=== PATIENT | female | born 1960 | race Two or more races ===

== ENCOUNTER 2018-01-14 08:05 | Outpatient (CLI) | payer OTHER | END 2018-01-14 08:30 | disposition home or self-care (01) | LOC: LAB 08:05 | DX: D64.89 Other specified anemias (principal); M06.09 Rheumatoid arthritis without rheumatoid factor, multiple sites; I10 Essential (primary) hypertension; E78.4 Other hyperlipidemia; E03.8 Other specified hypothyroidism; M81.0 Age-related osteoporosis without current pathological fracture; N39.0 Urinary tract infection, site not specified; D50.8 Other iron deficiency anemias; I11.9 Hypertensive heart disease without heart failure; E56.8 Deficiency of other vitamins; Z12.11 Encounter for screening for malignant neoplasm of colon; R19.5 Other fecal abnormalities; E55.9 Vitamin D deficiency, unspecified; N19 Unspecified kidney failure; R80.8 Other proteinuria; C18.9 Malignant neoplasm of colon, unspecified; K92.1 Melena ==

== ENCOUNTER 2018-01-30 07:43 | Outpatient (CLI) | payer OTHER | END 2018-01-30 08:45 | disposition home or self-care (01) | LOC: NUCLEAR 07:43 | DX: M06.89 Other specified rheumatoid arthritis, multiple sites (principal); I73.9 Peripheral vascular disease, unspecified; I87.2 Venous insufficiency (chronic) (peripheral) | CPT/HCPCS: 93970; 78306; A9503 ==

== ENCOUNTER 2018-10-31 09:06 | Outpatient (CLI) | payer OTHER | END 2018-10-31 09:09 | disposition home or self-care (01) | LOC: SONOGRAMA 09:06 | DX: E04.2 Nontoxic multinodular goiter (principal) ==

== ENCOUNTER 2018-11-02 08:41 | Outpatient (CLI) | payer OTHER | END 2018-11-02 13:03 | disposition home or self-care (01) | LOC: LAB 08:41 | DX: E03.8 Other specified hypothyroidism (principal); D50.9 Iron deficiency anemia, unspecified; E78.2 Mixed hyperlipidemia; I11.9 Hypertensive heart disease without heart failure; E56.8 Deficiency of other vitamins; N39.0 Urinary tract infection, site not specified; Z12.11 Encounter for screening for malignant neoplasm of colon; E55.9 Vitamin D deficiency, unspecified; N19 Unspecified kidney failure; E11.9 Type 2 diabetes mellitus without complications; R80.8 Other proteinuria; C18.0 Malignant neoplasm of cecum; K92.1 Melena; E21.0 Primary hyperparathyroidism ==

== ENCOUNTER 2019-04-17 11:25 | Outpatient (CLI) | payer OTHER | END 2019-04-17 12:00 | disposition home or self-care (01) | LOC: LAB 11:25 | DX: D50.9 Iron deficiency anemia, unspecified (principal); E03.8 Other specified hypothyroidism; E78.2 Mixed hyperlipidemia; I11.9 Hypertensive heart disease without heart failure; E56.8 Deficiency of other vitamins; N39.0 Urinary tract infection, site not specified; Z12.11 Encounter for screening for malignant neoplasm of colon; E55.9 Vitamin D deficiency, unspecified; N19 Unspecified kidney failure; E11.9 Type 2 diabetes mellitus without complications; R80.8 Other proteinuria; K92.1 Melena ==

== ENCOUNTER 2019-04-25 15:51 | Outpatient (CLI) | payer OTHER | END 2019-04-25 16:12 | disposition home or self-care (01) | LOC: LAB 15:51 | DX: D50.8 Other iron deficiency anemias (principal); E03.8 Other specified hypothyroidism; E78.2 Mixed hyperlipidemia; I11.9 Hypertensive heart disease without heart failure; E56.8 Deficiency of other vitamins; N39.0 Urinary tract infection, site not specified; Z12.11 Encounter for screening for malignant neoplasm of colon; E55.9 Vitamin D deficiency, unspecified; N19 Unspecified kidney failure; E11.9 Type 2 diabetes mellitus without complications; R80.8 Other proteinuria; C18.0 Malignant neoplasm of cecum; K92.1 Melena ==

== ENCOUNTER 2020-05-13 09:43 | Outpatient (CLI) | payer OTHER | END 2020-05-13 16:42 | disposition home or self-care (01) | LOC: MAMO-SONO 09:43 | PROVIDERS: ATTEND Obstetrics & Gynecology | DX: Z12.31 Encounter for screening mammogram for malignant neoplasm of breast (principal); N60.11 Diffuse cystic mastopathy of right breast; N60.12 Diffuse cystic mastopathy of left breast ==

== ENCOUNTER 2021-10-26 11:35 | Outpatient (CLI) | payer OTHER | END 2021-10-26 11:37 | disposition home or self-care (01) | LOC: LAB 11:35 | PROVIDERS: ATTEND Internal Medicine Geriatric Medicine | DX: D50.9 Iron deficiency anemia, unspecified (principal); E03.9 Hypothyroidism, unspecified; E78.2 Mixed hyperlipidemia; I11.9 Hypertensive heart disease without heart failure; E56.8 Deficiency of other vitamins; N39.0 Urinary tract infection, site not specified; Z12.11 Encounter for screening for malignant neoplasm of colon; R19.5 Other fecal abnormalities; E55.9 Vitamin D deficiency, unspecified; N19 Unspecified kidney failure; E11.9 Type 2 diabetes mellitus without complications; R80.9 Proteinuria, unspecified; C18.9 Malignant neoplasm of colon, unspecified; K92.1 Melena ==

== ENCOUNTER → 2021-10-27 11:00 | Outpatient (CLI) | payer OTHER | END | disposition home or self-care (01) | LOC: LAB 11:00 | PROVIDERS: ATTEND Internal Medicine Rheumatology | DX: M06.09 Rheumatoid arthritis without rheumatoid factor, multiple sites (principal) ==